=== PATIENT | female | born 1955 | race Caucasian/White ===

== ENCOUNTER 2021-08-13 14:00 | Outpatient (REF) | payer MEDICARE, MEDICAID, SELFPAY ==
[2021-08-13 16:35] LABS: MANUAL DIFF FLAG NO
[2021-08-13 16:40] LABS: Basophils Percent Auto 0.6 % (0-2); Eosinophils Absolute Auto 0.1 X10*3/uL (0.0-0.4); Eosinophils Percent Auto 1.5 % (0-4); Hematocrit 43.9 % (37.0-47.0); Hemoglobin 14.2 g/dl (12.0-16.0); Imm Gran Abs Auto 0.01 X10*3/uL (0.00-0.03); Imm Gran Pct Auto 0.2 % (0.0-0.4); Lymphocytes Absolute Auto 1.3 X10*3/uL (1.2-4.9); Mean Corpuscular HGB Conc 32.3 g/dl (31.0-35.0); Mean Corpuscular Volume 92.8 fL (80.0-98.0); Mean Platelet Volume 11.1 fL (9.4-12.3); Monocytes Absolute Auto 0.5 X10*3/uL (0.1-1.2); Monocytes Percent Auto 10.3 % (2-11); Neutrophils Absolute Auto 3.3 x10*3/uL (2.0-8.3); Neutrophils Percent Auto 63.4 % (45-73); Platelet Count 198 X10*3/uL (160-400); Red Blood Count 4.73 X10*6/uL (4.20-5.50); Red Cell Distribution Width 13.5 % (11.0-16.0); White Blood Count 5.3 X10*3/uL (4.8-10.8)
[2021-08-13 16:53] LABS: Alanine Aminotransferase 21 U/L (0-31); Albumin Level 4.4 g/dL (3.5-5.0); Alkaline Phosphatase 65 U/L (39-117); Anion Gap 16 (12-20); Aspartate Amino Transferase 23 U/L (5-31); Bilirubin Total 0.5 mg/dL (0.0-1.0); Blood Urea Nitrogen 12 mg/dL (9-16); Calcium 9.7 mg/dL (8.4-10.2); Carbon Dioxide 23 mmol/L (22-29); Chloride 104 mmol/L (96-108); Cholesterol 272 mg/dL; Estimated Average Glucose 114 mg/dL; Estimated Glomerular Filt Rate > 60; Glucose Fasting 78 mg/dL (60-99); HDL Cholesterol 55 mg/dL; Hemoglobin A1c % 5.6 %; LDL Cholesterol Calculated 191 mg/dl; Potassium 4.5 mmol/L (3.3-5.1); Sodium 138 mmol/L (135-145); Total Protein 6.7 g/dL (6.5-8.0); Triglycerides 133 mg/dL
[2021-08-13 17:10] LABS: Erythrocyte Sedimentation Rate 9 MM/HR (0-20)
[2021-08-13 17:14] LABS: TSH reflex Free T4 1.42 uIU/mL (0.32-4.0)
[2021-08-13 17:24] LABS: Folate 17.4 ng/mL (> or = 4.0); Vitamin B12 425 pg/mL (200-900)
[2021-08-17 15:17] LABS: Vitamin D 25-OH, D2 <4 ng/mL; Vitamin D 25-OH, D3 26 ng/mL; Vitamin D 25-OH, Total 26 ng/mL (30-100)
== END 2021-08-13 14:01 | disposition home or self-care (01) ==
LOC: HO.HMGCLDS 14:00
PROVIDERS: Visit Provider Nurse Practitioner Acute Care
DX: L20.81 Atopic neurodermatitis (principal); L29.9 Pruritus, unspecified; R53.82 Chronic fatigue, unspecified; E78.5 Hyperlipidemia, unspecified
CPT/HCPCS: 36415; 80053; 80061; 82306; 82607; 82746; 83036; 84443; 85025; 85652

== ENCOUNTER → 2023-01-04 13:22 | Outpatient (REF) | payer MEDICARE, MEDICAID, SELFPAY ==
--- NOTE | 2023-01-04 13:25 | HM_ITS ---
* Total monitoring time 2 days. * Underlying rhythm is sinus. Average ventricular rate 54/Min. Range 40 to 78/Min. * About 78% of the time, rate less than 60/Min. * Rare PACs with minimal burden. Very brief runs noted. * No significant pauses or AV blocks. * Palpitations/skipping associated with supraventricular ectopy. MTDD
== END ==
LOC: HO.CARD 13:22
PROVIDERS: PCP Internal Medicine; Visit Provider Internal Medicine
DX: I47.1 Supraventricular tachycardia (principal)
CPT/HCPCS: 93225

== ENCOUNTER → 2023-01-04 13:25 | Outpatient (BNV) | payer MEDICARE, MEDICAID, SELFPAY | PROVIDERS: PCP Internal Medicine; Visit Provider Internal Medicine | DX: I49.1 Atrial premature depolarization (principal) | CPT/HCPCS: 93227 ==

== ENCOUNTER 2023-03-24 13:16 | Outpatient (AMB) | payer MEDICARE, MEDICAID, SELFPAY ==
--- NOTE | 2023-03-24 13:43 | A.OFFVIS_ITS ---
Intake Vital Signs 03/24/23 13:44 Height 5 ft 4 in Weight 160 lb 0.889 oz BMI 27.5 BP 140/72 H Blood Pressure Location Lt brachial Position Sitting Pulse 61 Intake Visit Reasons: NPV/[place]/Tachycardia Intake Note: NPV w/ EKG Support Clerk Required: No Accompanied by: Self / Same As Patient Allergies barium sulfate Allergy (Intermediate, Verified 03/24/23 13:49) Hives buspirone [From BuSpar] Allergy (Intermediate, Verified 03/24/23 13:49) Shakiness erythromycin base Allergy (Intermediate, Verified 03/24/23 13:49) Swelling house dust mite Allergy (Intermediate, Verified 03/24/23 13:49) Runny Nose imipramine Allergy (Intermediate, Verified 03/24/23 13:49) Anxiety lactose Allergy (Intermediate, Verified 03/24/23 13:49) Diarrhea mepivacaine [From Carbocaine] Allergy (Intermediate, Verified 03/24/23 13:49) Difficulty Breathing oxycodone Allergy (Intermediate, Verified 03/24/23 13:49) Anxiety penicillin V Allergy (Intermediate, Verified 03/24/23 13:49) Swelling Ykcvhrj-PGZ-GtY Reductase Inhibitor Allergy (Intermediate, Verified 03/24/23 13:49) Muscle cramps Sulfa (Sulfonamide Antibiotics) Allergy (Intermediate, Verified 03/24/23 13:49) Swelling tetracycline Allergy (Intermediate, Verified 03/24/23 13:49) Diarrhea varenicline Allergy (Intermediate, Verified 03/24/23 13:49) Nausea Medication List - Last Reconciled 03/24/23 by Sumit Townsend MD blood pressure test kit-medium As directed fluticasone propionate 50 mcg/actuation (Flonase Allergy Relief) 1 spray intranasal DAILY 90 days hydrocortisone 1% (Cortisone (hydrocortisone)) 1 appl topical BID PRN 30 days hydroxyzine HCl 25 mg PO BID PRN ketoconazole 2% 1 appl topical 2XW 30 days loratadine (Allergy Relief (loratadine)) 10 mg PO DAILY multivitamin 1 tab PO DAILY prednisolone acetate 1% drps ophthalmic (eye) propranolol 5 mg (1/2 x 10 mg) PO BID 90 days tacrolimus 0.03% 1 appl topical BID [vitamin S16-sayeh acid ] [Vitamin C ] [Vitamin D3 ] HPI HPI Comments History of Present Illness Details Payal is here for consultation regarding an episode of palpitations. Apparently few weeks ago, she felt as though her heart was racing. It lasted for short time only. Subsequently, there is no clear recurrence. She has numerous symptoms including aches and pains, stress etc., and various other complaints. No previous history of any coronary artery disease, myocardial infarction or cardiomyopathy or in fact any cardiac issues whatsoever. Just has a lot of constitutional type nonspecific symptoms. [facility] Medical History Anxiety Back pain Chronic fatigue syndrome Claustrophobia Dyslipidemia Elevated cholesterol Environmental allergies Fibromyalgia HTN (hypertension) IBS (irritable bowel syndrome) Lactose intolerance MDD (major depressive disorder) Myalgic encephalomyelitis syndrome Panic attacks Personality disorder PTSD (post-traumatic stress disorder) Sjogrens syndrome Smoker Tendonitis of shoulder, right TMJ (dislocation of temporomandibular joint) Wears dentures Surgical History Hx of oral surgery Hx of laparoscopy Hx of tonsillectomy Hx of colonoscopy Family History Mother No problems noted. Father No problems noted. 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) Alcohol intake: never Patient Tobacco Use Status: Current everyday Tobacco user Tobacco use type: Cigarette Cigarettes Per Day: 6 Years Smoked: 35 e-Cigarette/Vaping Use: Currently Using Second Hand Smoke Exposure: No service: No Current occupational status: retired Cognitive needs: Yes Hearing needs: No Vision needs: Yes Review of Systems Const Denies chills, Denies daytime sleepiness, Denies fatigue, Denies fever(s), Denies frequent falls, Denies night sweats, Denies snoring, Denies weakness, Denies weight gain and Denies weight loss Eyes Denies loss of vision ENT Denies dizziness and Denies hearing loss Card Denies chest pain, Denies chest pain with activity, Denies syncope, Denies rapid heart rate, Denies edema, Denies claudication, Denies leg edema, Denies lightheadedness, Denies palpitations, Denies dyspnea, Denies dyspnea on exertion and Denies orthopnea Resp Denies cough, Denies excessive phlegm production, Denies dyspnea, Denies dyspnea on exertion, Denies snoring and Denies wheezing GI Denies abdominal pain, Denies hematochezia, Denies change in bowel habits, Denies change in stool character, Denies heartburn, Denies nausea and Denies vomiting Denies hematuria, Denies urinary frequency and Denies dysuria Musc Denies arthralgias, Denies muscle weakness, Denies numbness and Denies tingling Skin/Breast Denies nail changes and Denies rash Neuro Denies Abnormal speech present, Denies dizziness, Denies syncope, Denies frequent falls, Denies loss of vision, Denies memory loss, Denies numbness, Denies tingling and Denies weakness Psych Denies depression and Denies memory loss Endo Denies fatigue and Denies palpitations Aller/Immun Denies wheezing Physical Exam Vital Signs: Last Vital Signs Pulse 61 03/24/23 13:44 BP 140/72 H 03/24/23 13:44 BMI result Body Mass Index 27.5 Const General: comfortable and no acute distress Orientation/consciousness: patient oriented x3 HEENT Other: Unremarkable Head: Yes normal to inspection Neck Neck: Yes normal visual inspection Chest Chest palpation & inspection: normal inspection of the chest Resp Auscultation: clear to auscultation bilaterally Cardio Palpation: normal PMI Heart sounds: S1 normal heart sound present, S2 normal heart sound present, no gallops, Murmur heart sound present systolic I/ and no rubs GI Palpation (GI): Soft to palpation Back/Spine/Pelvis Other: unremarkable Skin General skin exam: no rashes or lesions noted Neuro General: patient oriented x3 Speech: No Abnormal speech present Extrem General: Yes normal to inspection Psych Mental Status: mental status grossly normal Office Procedures EKG Details: EKG with sinus rhythm at 61/Min; nonspecific ST-T changes but otherwise unremarkable[place] [id number], Complete Assessment & Plan Assessment & Plan (1) Heart palpitations: Code(s): R00.2 - Palpitations Plan Isolated occurrence of brief palpitations, but no clear recurrences. In the Holter monitor, underlying rhythm is sinus with an average rate of 54/Min. Range was 40-78/Min. Most of the heart rates were actually less than 60/Min. Rare PACs and low burden. Overall, nothing of major concern. As the episode was isolated and the Holter is also reassuring, reassurance only at this time. If these episodes are recurrent, then we can do longer term monitoring. Otherwise, echocardiogram for cardiac function assessment. She states that twin brother had some valve procedure but she really cannot give any further information. We can assess for bicuspid valve extra. Otherwise, mainly provided reassurance. Orders: Orders CA echo transthoracic complete Today R00.2 - Palpitations Quality Reporting (2019) Adult ([facility] 13808/12/68) Smoking risk assessment performed?: Yes Patient Tobacco Use Status: Current everyday Tobacco user Coding Level of Care Code New Pt Level 3 (57221) Diagnoses Heart palpitations R00.2 CPT Codes EKG - CPT: 21108-[id number], Complete ([id number])
[2023-03-24 13:44] VITALS: BP 140/72; PULSE 61; BMI 27.5
== END 2023-03-24 14:07 | disposition home or self-care (01) ==
PROVIDERS: PCP Internal Medicine; Visit Provider Internal Medicine
DX: R00.2 Palpitations (principal)
CPT/HCPCS: 93010; 99203

== ENCOUNTER → 2023-03-24 13:16 | Outpatient (BNVA) | payer MEDICARE, MEDICAID, SELFPAY | PROVIDERS: PCP Internal Medicine; Visit Provider Internal Medicine | DX: R00.2 Palpitations (principal) | CPT/HCPCS: 93005; 99202 ==

== ENCOUNTER → 2023-05-07 13:42 | Outpatient (REF) | payer MEDICARE, MEDICAID, SELFPAY ==
--- NOTE | 2023-05-07 13:45 | CA_ITS ---
Transthoracic Echocardiogram Patient (Last, First, Middle): Payal Mina, Gender: Female Date of : 1955 Age: 67 Procedure Date: 05/07/2023 Procedure Type: Transthoracic Echocardiogram Location: OP Height: 162.56 cm Weight: 74.84 kg BSA: 1.80 m2 Heart Rate: bpm BP: 134 / 68 mmHg Senior Commissary Agent: TO Referring MD: Sumit Townsend MD Symptoms: R00.2 - Palpitations Study Quality: Fair ECG Rhythm: Sinus Conclusions: - The left ventricular systolic function is normal. The calculated ejection fraction is 61% by biplane method. - There is mild calcification of the aortic valve. - No obvious valvular pathology seen on this study. Findings Procedure Information The study quality is limited by the patients inability to tolerate the test. Left Ventricle Normal left ventricular cavity size. There is normal left ventricular wall thickness. The left ventricular systolic function is normal. The calculated ejection fraction is 61% by biplane method. There is no evidence of regional wall motion abnormalities. Evidence suggests grade I (mild) diastolic dysfunction. There is mild septal asymmetric hypertrophy. Right Ventricle Normal right ventricular cavity size and systolic function. Atria Both atria are normal in size. Aortic Valve There is a normal trileaflet aortic valve. There is mild calcification of the aortic valve. There is no aortic valve stenosis. There is no aortic valve regurgitation. Mitral Valve The mitral valve appears normal. There is trace mitral valve regurgitation. There is no mitral valve stenosis. Pulmonic Valve The pulmonic valve is likely normal. Tricuspid Valve There is trace tricuspid valve regurgitation. Tricuspid regurgitation envelope is inadequate for calculation of right ventricular systolic pressure. Great Vessels The asc aorta is normal in size. Venous The inferior vena cava is normal in size and collapses greater than 50% with inspiration. Pericardium/Pleural There is no evidence of pericardial effusion. Prior Study Comparison No prior study available for comparison. Recommendations, Care & Conclusions No obvious valvular pathology seen on this study. Measurements 2D Linear Measurements IVSd: 1.04 0.6-0.9/0.6-1.0 cm LVIDd: 4.07 3.9-5.3/4.2-5.9 cm LVIDd Index: 2.26 2.4-3.2/2.2-3.1 cm/m2 LVIDs: 2.04 2.0-3.6 cm LVPWd: 0.88 0.7-1.1 cm LA Diam: 3.00 2.7-3.8/3.0-4.0 cm LAIDs Index: 1.67 1.5-2.3 cm/m2 LV Mass: 153.51 67-162/88-224 g LV Mass Index: 85.29 43-95/49-115 g/m2 LVOT Diam: 2.00 3.0+(-)1.3 cm 2D Systolic Function EF 4C: 60.00 >55% EF 2C: 61.00 >55% EF BiP: 61.00 >55% Mitral Valve MV Pk E: 0.96 MV PK A: 1.09 MV Decel Time: 320.00 E/A: 0.90 E'Lateral: 7.07 E'Medial: 4.79 E/E' Med: 19.90 E/E' Lat: 13.50 PHT: 94.00 MVA PHT: 2.34 Decel Gates: 2.99 Aortic Valve AoV Pk Chip: 1.31 AoV Mn Chip: 0.82 AoV VTI: 0.31 AoV Pk Grad: 7.00 Aov Mn Grad: 3.00 ZOEY Cont.VTI: 2.77 LVOT LVOT Pk Chip: 1.03 LVOT Mn Chip: 0.68 LVOT VTI: 0.27 LVOT Pk Grad: 4.00 LVOT Mn Grad: 2.00 LVOT Diam: 2.00 LVOT Area: 3.14 Diastolic Function MV Pk E: 0.96 MV Pk A: 1.09 E/A: 0.90 E'Medial: 4.79 E/E' Med: 19.90 E' Laterial: 7.07 E/E' Lat: 13.50 Right Ventricle TAPSE (mm): 27.70 TVS' Chip: 12.40 Tricuspid Valve RA Press: 3.00 Great Vessels Aorta Sinus of Valsalva: 3.37 2.0-3.5 cm Ao Asc: 2.90 2.1-3.4 cm Updated in Other Vendor System with Status of Final Sumit Townsend MD electronically signed on 05/08/2023 2:03:09 PM with status of Final
== END ==
LOC: HO.CARD 13:42
PROVIDERS: PCP Internal Medicine; Visit Provider Internal Medicine
DX: R00.2 Palpitations (principal)
CPT/HCPCS: 93306

== ENCOUNTER → 2023-05-07 13:45 | Outpatient (BNV) | payer MEDICARE, MEDICAID, SELFPAY | PROVIDERS: PCP Internal Medicine; Visit Provider Internal Medicine | DX: I35.8 Other nonrheumatic aortic valve disorders (principal) | CPT/HCPCS: 93306 ==

== ENCOUNTER 2023-07-01 12:41 | Outpatient (AMB) | payer MEDICARE, MEDICAID, SELFPAY ==
[2023-07-01 12:50] VITALS: BP 156/74; BMI 26.9
--- NOTE | 2023-07-01 12:50 | MHC.PC.OV ---
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 Accompanied by: Self / Same As Patient Allergies barium sulfate Allergy (Intermediate, Verified 07/01/23 13:09) Hives buspirone [From BuSpar] Allergy (Intermediate, Verified 07/01/23 13:09) Shakiness erythromycin base Allergy (Intermediate, Verified 07/01/23 13:09) Swelling house dust mite Allergy (Intermediate, Verified 07/01/23 13:09) Runny Nose imipramine Allergy (Intermediate, Verified 07/01/23 13:09) Anxiety lactose Allergy (Intermediate, Verified 07/01/23 13:09) Diarrhea mepivacaine [From Carbocaine] Allergy (Intermediate, Verified 07/01/23 13:09) Difficulty Breathing oxycodone Allergy (Intermediate, Verified 07/01/23 13:09) Anxiety penicillin V Allergy (Intermediate, Verified 07/01/23 13:09) Swelling Mmikdfs-NEW-ShR Reductase Inhibitor Allergy (Intermediate, Verified 07/01/23 13:09) Muscle cramps Sulfa (Sulfonamide Antibiotics) Allergy (Intermediate, Verified 07/01/23 13:09) Swelling tetracycline Allergy (Intermediate, Verified 07/01/23 13:09) Diarrhea varenicline Allergy (Intermediate, Verified 07/01/23 13:09) Nausea Medication List - Last Reconciled 07/01/23 by Maria M Tavarez MD blood pressure test kit-medium As directed fluticasone propionate 50 mcg/actuation (Flonase Allergy Relief) 1 spray intranasal DAILY 90 days hydrocortisone 1% (Cortisone (hydrocortisone)) 1 appl topical BID PRN 30 days hydroxyzine HCl 25 mg PO BID PRN ketoconazole 2% 1 appl topical 2XW 30 days loratadine (Allergy Relief (loratadine)) 10 mg PO DAILY multivitamin 1 tab PO DAILY prednisolone acetate 1% drps ophthalmic (eye) propranolol 5 mg (1/2 x 10 mg) PO BID 90 days tacrolimus 0.03% 1 appl topical BID [vitamin P46-wwmdk acid ] [Vitamin C ] [Vitamin D3 ] Tobacco use date assessed: 07/01/23 Dental Screening Dental Screen Date: 07/01/23 Did you have a dental visit in the last 12 months?: No Did you have a dental problem in the last 6 months where you did not have access to dental care?: No Was dental information given to patient?: Patient has dentist HPI HPI Comments History of Present Illness Details This is a 67-year-old female with recurrent major depression that comes for her physical exam. She said that her depression is aggravated by the person that lives above her makes a lot of knowing is. Declines medication or counseling. Declines mammograms. Last colonoscopy was 2014 at [facility] in [place] and he was normal as per patient. No chest pain or shortness of breath. [facility] Medical History (Updated 07/01/23 @ 14:13 by Maria M Tavarez MD) Dyslipidemia Smoker Fibromyalgia MDD (major depressive disorder) Back pain Lactose intolerance Tendonitis of shoulder, right Sjogrens syndrome Elevated cholesterol HTN (hypertension) Personality disorder Myalgic encephalomyelitis syndrome Chronic fatigue syndrome Environmental allergies Wears dentures IBS (irritable bowel syndrome) TMJ (dislocation of temporomandibular joint) PTSD (post-traumatic stress disorder) Anxiety Claustrophobia Panic attacks Surgical History (Updated 07/01/23 @ 13:20 by Maria M Tavarez MD) Cataracts, bilateral Hx of oral surgery Hx of laparoscopy Hx of tonsillectomy Hx of colonoscopy Family History Mother No problems noted. Father No problems noted. 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 1. Little interest or pleasure in doing things: several days 2. Feeling down, depressed, or hopeless: more than half the days 3. Trouble falling or staying asleep, or sleeping too much: nearly every day 4. Feeling tired or having little energy: nearly every day 5. Poor appetite or overeating: several days 6. Feeling bad about yourself - or that you are a failure or have let yourself or your family down: not at all 7. Trouble concentrating on things, such as reading the newspaper or watching television: not at all 8. Moving or speaking so slowly that other people could have noticed. Or the opposite - being so fidgety or restless that you have been moving around a lot more than usual: not at all 9. Thoughts that you would be better off or of hurting yourself in some way: not at all Total score: 10 Depression Screening Interpretation: Positive Depression Screening Follow-up: Existing condition Depression Screening Done: Yes 52514 - PHQ-9 Billing: Yes Source: Developed by Drs. Randell Vences, Kaylie Garcia, Thaddeus Roberson and colleagues, with an educational marta from [employer]. Thrive Questionnaire Date Thrive assessed: 07/01/23 I am a: Patient What is your living situation today?: I have a steady place to live Within the past 12 months, did the food you bought not last and you didn't have the money to get more?: Never true Within the past 12 months, did you worry whether your food would run out before you got money to buy more?: Never true Do you have trouble paying for medicines?: No Do you have trouble getting transportation to medical appointments?: No Do you have trouble paying your heating and electricity bill?: No Do you have trouble taking care of your child, family member or friend?: No Do you have trouble with day-to-day activities such as bathing, preparing meals, shopping, managing finances, etc.?: No Are you currently unemployed and looking for a job?: No Are you interested in more education?: No Please select the resources that you would like help with: None Currently or been in a relationship where the following occur: no concerns reported AUDIT C Alcohol Use Questionnaire (AUDIT-C) 1. How often do you have a drink containing alcohol?: Never Total Score: 0 MIKEL-7 AMB Questionnaire MIKEL-7 Date MIKEL - 7 assessed: 07/01/23 Feeling nervous, anxious, or on edge: 3 = Nearly every day Not being able to stop or control worryin = Not at all Worrying too much about different things: 2 = More than half the days Trouble relaxin = Not at all Being so restless that it is hard to sit still: 0 = Not at all Becoming easily annoyed or irritable: 0 = Not at all Feeling afraid as if something awful might happen: 0 = Not at all Total MIKEL-7 score (0-4 normal; 5-9 mild; 10-14 moderate; 15-21 severe): 5 Source: Developed by Drs. Randell Vences, Kaylie Garcia, Thaddeus Roberson and colleagues, with an educational marta from [employer]. MIKEL-7 Assessment Billing MIKEL-7 Assessment Tool: MIKEL-7 Assessment 19754 Review of Systems Const All systems reviewed & are unremarkable except as noted in HPI and below Eyes Reports no additional complaints, Denies change in vision and Denies other visual disturbances Card Denies chest pain at rest, Denies chest pain with activity, Denies edema, Denies irregular heart rhythm, Denies claudication, Denies dyspnea, Denies dyspnea on exertion, Denies orthopnea, Denies paroxysmal nocturnal dyspnea and Denies slow heart rate Resp Denies cough, Denies dyspnea and Denies dyspnea on exertion GI Denies abdominal pain, Denies change in bowel habits, Denies excessive flatus, Denies nausea and Denies vomiting Denies urinary incontinence, Denies urinary hesitancy and Denies urinary urgency Musc Denies abnormal gait, Denies atrophy, Denies deformity and Denies limited range of motion Skin/Breast Denies bleeding lesions, Denies changing lesions and Denies rash Neuro Denies abnormal gait, Denies behavioral changes, Denies confusion and Denies lack of coordination Psych Denies behavioral changes and Denies confusion Physical exam (Primary Care) Vital Signs: Last Vital Signs BP 156/74 H 07/01/23 12:50 BMI result Body Mass Index 26.9 Tobacco/Smoking Status: Tobacco use Status Tobacco use date assessed 07/01/23 07/01/23 13:02 Patient Tobacco Use Status Current everyday Tobacco 07/01/23 13:02 Tobacco use type Cigarette 07/01/23 13:02 e-Cigarette/Vaping Use Currently Using 07/01/23 13:02 PHQ-9: PHQ-9 Score PHQ-9: Total score 10 07/01/23 13:41 Depression Screening Interpretation: Positive Depression Screening Follow-up: Existing condition Thrive Assessment: Date of Thrive Assessment Date Thrive assessed 07/01/23 07/01/23 13:02 Currently or been in a relationship where the following occur: no concerns reported Const General: No confusion Orientation/consciousness: patient oriented x3 and No confusion HENMT Head: Yes normal to inspection, Yes normocephalic and Yes atraumatic Ears: external ears normal Eyes General: appearance normal, both eyes and all related structures Eyelids: Yes eyelids normal Conjunctivae: conjunctivae normal Neck Neck: Yes normal visual inspection and Yes supple Resp Effort & Inspection: normal respiratory effort Auscultation: clear to auscultation bilaterally Cardio Jugular venous distension: no JVD Rate: regular rate Rhythm: regular rhythm Heart sounds: S1 normal heart sound present and S2 normal heart sound present GI Inspection: Yes normal to inspection Palpation (GI): Soft to palpation and nontender Auscultation: normal bowel sounds Skin General skin exam: no rashes or lesions noted Neuro General: patient oriented x3, no focal motor deficits and No confusion Extrem General: Yes full ROM Psych Appearance: grossly normal Office Procedures Flu Questionnaire Does the patient have a severe egg allergy?: No Immunizations flu vacc [id number] 6mos up(PF) 60 mcg(15 mcgx4)/0.5 mL IM syringe Performing Provider: Maria M Tavarez MD [facility] Documented (not given) by: AI Pelletier on 07/01/23 13:40 Reason Not Given: Patient Refused Assessment and Plan Assessment & Plan (1) Physical exam: Code(s): Z00.00 - Encounter for general adult medical examination without abnormal findings Plan: Repeat in a year. (2) Major depression, recurrent: Code(s): F33.9 - Major depressive disorder, recurrent, unspecified Qualifiers: Active/Remission status: currently active Major depression episode severity: mild Qualified Code(s): F33.0 - Major depressive disorder, recurrent, mild Plan: Was advised to let me know if she wants counseling or medication. Orders: Orders Vitamin D 25-OH Total Today E55.9 - Vitamin D deficiency, unspecified Influenza [id number] Immunization Today Z23 - Encounter for immunization Lipid Panel Today E78.5 - Hyperlipidemia, unspecified Comprehensive [place]. Panel Fast Today I10 - Essential (primary) hypertension Complete Blood Count Auto Diff Today R53.82 - Chronic fatigue, unspecified Vitamin B12 and Folate Today E53.8 - Deficiency of other specified B group vitamins, R53.82 - Chronic fatigue, unspecified Thyroid Stimulating Hormone Today R53.82 - Chronic fatigue, unspecified Medications: New guaifenesin 200 mg PO DAILY PRN 90 tabs 1RF cough 90 days Changed From loratadine (Allergy Relief (loratadine)) 10 mg PO DAILY To loratadine (Allergy Relief (loratadine)) 10 mg PO DAILY 90 tabs 0RF 90 days Refilled fluticasone propionate 50 mcg/actuation (Flonase Allergy Relief) administer into each nostril 1 spray intranasal DAILY 16 grams 2RF 90 days propranolol 5 mg (1/2 x 10 mg) PO BID 90 tabs 1RF 90 days L29.9 - Pruritus, unspecified hydroxyzine HCl 25 mg PO BID PRN 180 tabs 0RF itching L29.9 - Pruritus, unspecified Coding Level of Care Code Est Pt Prev Care 40-64y(51076) Diagnoses Physical exam Z00.00 Mild episode of recurrent major depressive disorder F33.0 Active/Remission status: currently active Major depression episode severity: mild Additional Codes MIKEL-7 Assessment Billing - MIKEL-7 Assessment Tool: MIKEL-7 Assessment 24826 ([id number]) Time Spent (min) 34
[2023-07-01 14:10] VITALS: BP 150/70
== END 2023-07-01 13:43 | disposition home or self-care (01) ==
PROVIDERS: PCP Internal Medicine; Visit Provider Internal Medicine
DX: Z00.00 Encounter for general adult medical examination without abnormal findings (principal); F33.0 Major depressive disorder, recurrent, mild
CPT/HCPCS: 99397

== ENCOUNTER 2023-10-18 13:56 | Outpatient (AMB) | payer MEDICARE, MEDICAID, SELFPAY ==
[2023-10-18 14:55] VITALS: BP 138/80; PULSE 76; TEMP 36.4; O2SAT 97; BMI 25.7
--- NOTE | 2023-10-18 14:55 | MHC.OFFWIV ---
Intake Vital Signs 10/18/23 14:55 Height 5 ft 4 in Weight 150 lb BMI 25.7 BP 138/80 Blood Pressure Location Lt brachial Position Sitting Pulse 76 Pulse Source Pulse Oximeter Temp 97.6 F Temp Source Temporal Artery Scan Pulse Oximetry (%) 97 Oxygen Delivery Method Room Air Intake Visit Reasons: EP RT eye swelling/Sinus ingfection Intake Note: Pt presents to the office today for c/o rt eye swelling, ? sinus infection that has been going on for about a week now. She states she also has a corneal abrasion that is being followed by her eye doctor. Patient Tobacco Use Status: Current everyday Tobacco user Allergies barium sulfate Allergy (Intermediate, Verified 10/18/23 15:59) Hives buspirone [From BuSpar] Allergy (Intermediate, Verified 10/18/23 15:59) Shakiness erythromycin base Allergy (Intermediate, Verified 10/18/23 15:59) Swelling house dust mite Allergy (Intermediate, Verified 10/18/23 15:59) Runny Nose imipramine Allergy (Intermediate, Verified 10/18/23 15:59) Anxiety lactose Allergy (Intermediate, Verified 10/18/23 15:59) Diarrhea mepivacaine [From Carbocaine] Allergy (Intermediate, Verified 10/18/23 15:59) Difficulty Breathing oxycodone Allergy (Intermediate, Verified 10/18/23 15:59) Anxiety penicillin V Allergy (Intermediate, Verified 10/18/23 15:59) Swelling Ngjmpic-NZI-LnF Reductase Inhibitor Allergy (Intermediate, Verified 10/18/23 15:59) Muscle cramps Sulfa (Sulfonamide Antibiotics) Allergy (Intermediate, Verified 10/18/23 15:59) Swelling tetracycline Allergy (Intermediate, Verified 10/18/23 15:59) Diarrhea varenicline Allergy (Intermediate, Verified 10/18/23 15:59) Nausea Medication List - Last Reconciled 10/18/23 by Rudy Rangel MD blood pressure test kit-medium As directed guaifenesin 200 mg PO DAILY PRN 90 days hydrocortisone 1% (Cortisone (hydrocortisone)) 1 appl topical BID PRN 30 days hydroxyzine HCl 25 mg PO BID PRN ketoconazole 2% 1 appl topical 2XW 30 days loratadine (Allergy Relief (loratadine)) 10 mg PO DAILY 90 days multivitamin 1 tab PO DAILY fwbojrkc-mgjcuyhcka-hdrx-HC 3.5-400-10,000 mg-unit/g-1% 1 appl ophthalmic (eye) QID ofloxacin 0.3% 1 drp ophthalmic (eye) QID prednisolone acetate 1% drps ophthalmic (eye) propranolol 5 mg (1/2 x 10 mg) PO BID 90 days tacrolimus 0.03% 1 appl topical BID [vitamin N38-nfqoy acid ] [Vitamin C ] [Vitamin D3 ] HPI EP RT eye swelling/Sinus ingfection HPI Details 67 yr old female presents to the office for a sick visit. Pt has a corneal abrasion in the right eye and is on medications since Wednesday last. She now has a running nose, sinus pain and headaches. Her Eye MD suggested she see her PCP. No fever or chills. [facility] Medical History Dyslipidemia Smoker Fibromyalgia MDD (major depressive disorder) Back pain Lactose intolerance Tendonitis of shoulder, right Sjogrens syndrome Elevated cholesterol HTN (hypertension) Personality disorder Myalgic encephalomyelitis syndrome Chronic fatigue syndrome Environmental allergies Wears dentures IBS (irritable bowel syndrome) TMJ (dislocation of temporomandibular joint) PTSD (post-traumatic stress disorder) Anxiety Claustrophobia Panic attacks Surgical History Cataracts, bilateral Hx of oral surgery Hx of laparoscopy Hx of tonsillectomy Hx of colonoscopy Family History Mother No problems noted. Father No problems noted. 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) Alcohol intake: never Patient Tobacco Use Status: Current everyday Tobacco user Tobacco use type: Cigarette Cigarettes Per Day: 6 Years Smoked: 35 e-Cigarette/Vaping Use: Currently Using Second Hand Smoke Exposure: No service: No Current occupational status: retired Cognitive needs: Yes Hearing needs: No Vision needs: Yes Physical Exam Vital Signs: Last Vital Signs Temp 97.6 F 10/18/23 14:55 Pulse 76 10/18/23 14:55 BP 138/80 10/18/23 14:55 Pulse Ox 97 10/18/23 14:55 Oxygen Delivery Method Room Air 10/18/23 14:55 BMI result Body Mass Index 25.7 Const General: cooperative and healthy appearing Nutritional Appearance: well nourished Orientation/consciousness: patient oriented x3 Limitations: no limitations HEENT Head: Yes normal to inspection Eyes Other: Right eye: swollen eyelid with congested conjunctiva. Neck Neck: Yes normal visual inspection Chest Chest palpation & inspection: normal palpation of entire chest wall Resp Effort & Inspection: normal respiratory effort Neuro General: patient oriented x3 Assessment & Plan Assessment & Plan (1) Sinusitis: Code(s): J32.9 - Chronic sinusitis, unspecified Plan: Flonase and Z tami called in. If sx do not improve to follow up here. Coding Level of Care Code Est Pt Level 3 (35794) Diagnoses Sinusitis J32.9
== END 2023-10-18 15:55 | disposition home or self-care (01) ==
PROVIDERS: PCP Internal Medicine; Visit Provider Internal Medicine
DX: J32.9 Chronic sinusitis, unspecified (principal)
CPT/HCPCS: 99213

== ENCOUNTER 2023-10-26 17:05 | Outpatient (AMB) | payer MEDICARE, MEDICAID, SELFPAY ==
--- NOTE | 2023-10-26 17:05 | A.OFFPC_ITS ---
Intake Visit Reasons: Cold Symptoms, sinus pressure, eye socket pain Edging Supervisor Required: No Accompanied by: Self / Same As Patient Allergies barium sulfate Allergy (Intermediate, Verified 10/26/23 17:11) Hives buspirone [From BuSpar] Allergy (Intermediate, Verified 10/26/23 17:11) Shakiness erythromycin base Allergy (Intermediate, Verified 10/26/23 17:11) Swelling house dust mite Allergy (Intermediate, Verified 10/26/23 17:11) Runny Nose imipramine Allergy (Intermediate, Verified 10/26/23 17:11) Anxiety lactose Allergy (Intermediate, Verified 10/26/23 17:11) Diarrhea mepivacaine [From Carbocaine] Allergy (Intermediate, Verified 10/26/23 17:11) Difficulty Breathing oxycodone Allergy (Intermediate, Verified 10/26/23 17:11) Anxiety penicillin V Allergy (Intermediate, Verified 10/26/23 17:11) Swelling Yyvvfsx-WUP-NhL Reductase Inhibitor Allergy (Intermediate, Verified 10/26/23 17:11) Muscle cramps Sulfa (Sulfonamide Antibiotics) Allergy (Intermediate, Verified 10/26/23 17:11) Swelling tetracycline Allergy (Intermediate, Verified 10/26/23 17:11) Diarrhea varenicline Allergy (Intermediate, Verified 10/26/23 17:11) Nausea Medication List - Last Reconciled 10/26/23 by Maria M Tavarez MD azithromycin (Zithromax) take 500 mg today (day 1), then 250 mg for 4 days (days 2-5) PO blood pressure test kit-medium As directed fluticasone propionate 50 mcg/actuation (Flonase Allergy Relief) 1 spray intranasal DAILY guaifenesin 200 mg PO DAILY PRN 90 days hydrocortisone 1% (Cortisone (hydrocortisone)) 1 appl topical BID PRN 30 days hydroxyzine HCl 25 mg PO BID PRN ketoconazole 2% 1 appl topical 2XW 30 days loratadine (Allergy Relief (loratadine)) 10 mg PO DAILY 90 days multivitamin 1 tab PO DAILY hcnwbbia-offnetdgte-scuf-HC 3.5-400-10,000 mg-unit/g-1% 1 appl ophthalmic (eye) QID ofloxacin 0.3% 1 drp ophthalmic (eye) QID prednisolone acetate 1% drps ophthalmic (eye) propranolol 5 mg (1/2 x 10 mg) PO BID 90 days tacrolimus 0.03% 1 appl topical BID [vitamin G76-rumxa acid ] [Vitamin C ] [Vitamin D3 ] Tobacco use date assessed: 07/01/23 Dental Screening Dental Screen Date: 07/01/23 HPI HPI Comments History of Present Illness Details This is a 67-year-old female with right eye corneal abrasion that happened 10 days ago that has tele health visit by phone complaining of still having some nasal congestion after being treated at the walk-in clinic for sinusitis with a Z-Gary. Feels improved but still somewhat congested. I recommend Neti pot. She is having antibiotic eyedrops for her corneal abrasion and is not able to open the right eye and is very sensitive to light. [facility] Medical History Dyslipidemia Smoker Fibromyalgia MDD (major depressive disorder) Back pain Lactose intolerance Tendonitis of shoulder, right Sjogrens syndrome Elevated cholesterol HTN (hypertension) Personality disorder Myalgic encephalomyelitis syndrome Chronic fatigue syndrome Environmental allergies Wears dentures IBS (irritable bowel syndrome) TMJ (dislocation of temporomandibular joint) PTSD (post-traumatic stress disorder) Anxiety Claustrophobia Panic attacks Surgical History Cataracts, bilateral Hx of oral surgery Hx of laparoscopy Hx of tonsillectomy Hx of colonoscopy Family History Mother No problems noted. Father No problems noted. 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 Randell Vences, Kaylie Garcia, Thaddeus Roberson and colleagues, with an educational marta from [employer]. Review of Systems Const All systems reviewed & are unremarkable except as noted in HPI and below Eyes Reports no additional complaints, Denies change in vision, Reports other visual disturbances and Reports photophobia ENT Reports nasal congestion Card Denies chest pain at rest, Denies chest pain with activity, Denies edema, Denies irregular heart rhythm, Denies claudication, Denies orthopnea, Denies paroxysmal nocturnal dyspnea and Denies slow heart rate Physical exam (Primary Care) Tobacco/Smoking Status: Tobacco use Status Tobacco use date assessed 07/01/23 10/26/23 17:07 Patient Tobacco Use Status Current everyday Tobacco 10/26/23 17:07 Tobacco use type Cigarette 10/26/23 17:07 e-Cigarette/Vaping Use Currently Using 10/26/23 17:07 Thrive Assessment: Date of Thrive Assessment Date Thrive assessed 07/01/23 10/26/23 17:07 Eyes Direct Ophthalmoscopy: photophobia Telehealth Telehealth Telehealth Platform: Telephone Location of provider rendering services: practice address Location of patient: address on file Patient Identification confirmed using: Name, : Yes Telehealth method: voice only Patient verbally consented to treatment: Yes Patient verbally consented to billing insurance company: Yes Patient informed of any privacy concerns related to visit: Yes Minutes spent on Phone/Video with Pt.: 20 Assessment and Plan Assessment & Plan (1) Corneal abrasion: Code(s): S05.00XA - Injury of conjunctiva and corneal abrasion without foreign body, unspecified eye, initial encounter Plan: Follow-up with ophthalmology. Continue antibiotic eyedrops. (2) Nasal congestion: Code(s): R09.81 - Nasal congestion Plan: Start Neti pot as needed. Coding Level of Care Code Tele Est Pt Level 3 (43645) Diagnoses Corneal abrasion S05.00XA Nasal congestion R09.81 Time Spent (min) 20
== END 2023-10-26 17:36 | disposition home or self-care (01) ==
LOC: HO.HMGH 17:05
PROVIDERS: PCP Internal Medicine; Visit Provider Internal Medicine
DX: S05.00XA Injury of conjunctiva and corneal abrasion without foreign body, unspecified eye, initial encounter (principal); R09.81 Nasal congestion
CPT/HCPCS: G2252

== ENCOUNTER 2024-07-05 14:22 | Outpatient (AMB) | payer MEDICARE, MEDICAID, SELFPAY ==
--- NOTE | 2024-07-05 14:29 | A.OFFPC_ITS ---
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 Accompanied by: Self / Same As Patient Allergies barium sulfate Allergy (Intermediate, Verified 07/05/24 14:48) Hives buspirone [From BuSpar] Allergy (Intermediate, Verified 07/05/24 14:48) Shakiness erythromycin base Allergy (Intermediate, Verified 07/05/24 14:48) Swelling house dust mite Allergy (Intermediate, Verified 07/05/24 14:48) Runny Nose imipramine Allergy (Intermediate, Verified 07/05/24 14:48) Anxiety lactose Allergy (Intermediate, Verified 07/05/24 14:48) Diarrhea mepivacaine [From Carbocaine] Allergy (Intermediate, Verified 07/05/24 14:48) Difficulty Breathing oxycodone Allergy (Intermediate, Verified 07/05/24 14:48) Anxiety penicillin V Allergy (Intermediate, Verified 07/05/24 14:48) Swelling Pxlqwub-LLE-KoN Reductase Inhibitor Allergy (Intermediate, Verified 07/05/24 14:48) Muscle cramps Sulfa (Sulfonamide Antibiotics) Allergy (Intermediate, Verified 07/05/24 14:48) Swelling tetracycline Allergy (Intermediate, Verified 07/05/24 14:48) Diarrhea varenicline Allergy (Intermediate, Verified 07/05/24 14:48) Nausea Medication List - Last Reconciled 07/05/24 by Maria M Tavarez MD blood pressure test kit-medium As directed fluticasone propionate 50 mcg/actuation (Flonase Allergy Relief) 1 spray intranasal DAILY hydrocortisone 1% (Cortisone (hydrocortisone)) 1 appl topical BID PRN 30 days hydroxyzine HCl 25 mg PO BID PRN ketoconazole 2% 1 appl topical 2XW 30 days loratadine (Allergy Relief (loratadine)) 10 mg PO DAILY 90 days multivitamin 1 tab PO DAILY voqzbeam-wozrgiphgu-fcdo-HC 3.5-400-10,000 mg-unit/g-1% 1 appl ophthalmic (eye) QID ofloxacin 0.3% 1 drp ophthalmic (eye) QID prednisolone acetate 1% drps ophthalmic (eye) propranolol 5 mg (1/2 x 10 mg) PO BID 90 days tacrolimus 0.03% 1 appl topical BID [vitamin F11-bgvoj acid ] [Vitamin C ] [Vitamin D3 ] Tobacco use date assessed: 07/05/24 Fall risk assessment: No Falls in past year Last assessed Fall Risk: 07/05/24 Dental Screening Dental Screen Date: 07/05/24 Did you have a dental visit in the last 12 months?: Yes Did you have a dental problem in the last 6 months where you did not have access to dental care?: No Was dental information given to patient?: Patient has dentist HPI HPI Comments History of Present Illness Details This is a 68-year-old female that comes for her physical exam. She declines mammogram and DEXA scan. Had colonoscopy 2014 and was normal. Has dyslipidemia and declines statins. She also declines any type of vaccine. Complains of dry eyes and dry mouth. Has scalp pruritus and saw Dermatology for it. Complains of right foot pain due to bunion and has onychogryphosis and would like to see Podiatry. Also has tooth pain and will see dentist next week. She complains of insomnia due to upstairs neighbor making a lot of noise and I offer medication for insomnia and she declines it. She also has moderate recurrent major depression and declines counseling and medication. [facility] Medical History Dyslipidemia Smoker Fibromyalgia MDD (major depressive disorder) Back pain Lactose intolerance Tendonitis of shoulder, right Sjogrens syndrome Elevated cholesterol HTN (hypertension) Personality disorder Myalgic encephalomyelitis syndrome Chronic fatigue syndrome Environmental allergies Wears dentures IBS (irritable bowel syndrome) TMJ (dislocation of temporomandibular joint) PTSD (post-traumatic stress disorder) Anxiety Claustrophobia Panic attacks Surgical History Cataracts, bilateral Hx of oral surgery Hx of laparoscopy Hx of tonsillectomy Hx of colonoscopy Family History Mother No problems noted. Father No problems noted. 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 1. Little interest or pleasure in doing things: more than half the days 2. Feeling down, depressed, or hopeless: more than half the days 3. Trouble falling or staying asleep, or sleeping too much: not at all 4. Feeling tired or having little energy: more than half the days 5. Poor appetite or overeating: more than half the days 6. Feeling bad about yourself - or that you are a failure or have let yourself or your family down: more than half the days 7. Trouble concentrating on things, such as reading the newspaper or watching te levision: more than half the days 8. Moving or speaking so slowly that other people could have noticed. Or the opposite - being so fidgety or restless that you have been moving around a lot more than usual: more than half the days 9. Thoughts that you would be better off or of hurting yourself in some way: not at all Total score: 14 Depression Screening Interpretation: Positive Depression Screening Follow-up: Existing condition and Follow-up Visit Requested Depression Screening Done: Yes 69732 - PHQ-9 Billing: Yes Source: Developed by Drs. Randell Vences, Kaylie Garcia, Thaddeus Roberson and colleagues, with an educational marta from [employer]. Thrive Questionnaire Date Thrive assessed: 07/05/24 I am a: Patient What is your living situation today?: I have a steady place to live Within the past 12 months, did the food you bought not last and you didn't have the money to get more?: Never true Within the past 12 months, did you worry whether your food would run out before you got money to buy more?: Never true Do you have trouble paying for medicines?: No Do you have trouble getting transportation to medical appointments?: No Do you have trouble paying your heating and electricity bill?: No Do you have trouble taking care of your child, family member or friend?: No Do you have trouble with day-to-day activities such as bathing, preparing meals, shopping, managing finances, etc.?: No Are you currently unemployed and looking for a job?: Yes Are you interested in more education?: No Please select the resources that you would like help with: None Currently or been in a relationship where the following occur: I choose not to answer THRIVE Score: 0 AUDIT C Alcohol Use Questionnaire (AUDIT-C) 1. How often do you have a drink containing alcohol?: Never Total Score: 0 Score Reviewed/Action Taken: No MIKEL-7 AMB Questionnaire MIKEL-7 Date MIKEL - 7 assessed: 07/05/24 Feeling nervous, anxious, or on edge: 0 = Not at all Not being able to stop or control worryin = More than half the days Worrying too much about different things: 0 = Not at all Trouble relaxin = More than half the days Being so restless that it is hard to sit still: 2 = More than half the days Becoming easily annoyed or irritable: 2 = More than half the days Feeling afraid as if something awful might happen: 1 = Several days Total MIKEL-7 score (0-4 normal; 5-9 mild; 10-14 moderate; 15-21 severe): 9 Source: Developed by Drs. Randell Vences, Kaylie Garcia, Thaddeus Roberson and colleagues, with an educational marta from [employer]. MIKEL-7 Assessment Billing MIKEL-7 Assessment Tool: MIKEL-7 Assessment 20421 Review of Systems Const All systems reviewed & are unremarkable except as noted in HPI and below Eyes Reports dry eyes Card Denies chest pain at rest, Denies chest pain with activity, Denies edema, Denies irregular heart rhythm, Denies claudication, Denies dyspnea, Denies dyspnea on exertion, Denies orthopnea, Denies paroxysmal nocturnal dyspnea and Denies slow heart rate Resp Denies cough, Denies dyspnea and Denies dyspnea on exertion GI Denies abdominal pain, Denies change in bowel habits, Denies excessive flatus, Denies nausea and Denies vomiting Physical exam (Primary Care) Vital Signs: Last Vital Signs BP 122/78 07/05/24 14:31 BMI result Body Mass Index 27.8 Tobacco/Smoking Status: Tobacco use Status Tobacco use date assessed 07/05/24 07/05/24 14:37 Patient Tobacco Use Status Current everyday Tobacco 07/05/24 14:31 Tobacco use type Cigarette 07/05/24 14:31 e-Cigarette/Vaping Use Currently Using 07/05/24 14:31 PHQ-9: PHQ-9 Score PHQ-9: Total score 14 07/05/24 14:51 Depression Screening Interpretation: Positive Depression Screening Follow-up: Existing condition and Follow-up Visit Requested Thrive Assessment: Date of Thrive Assessment Date Thrive assessed 07/05/24 07/05/24 14:37 Currently or been in a relationship where the following occur: I choose not to answer HENMT Head: Yes normal to inspection, Yes normocephalic and Yes atraumatic Ears: external ears normal Eyes General: appearance normal, both eyes and all related structures Eyelids: Yes eyelids normal Conjunctivae: conjunctivae normal Neck Neck: Yes normal visual inspection and Yes supple Resp Effort & Inspection: normal respiratory effort Auscultation: clear to auscultation bilaterally Cardio Jugular venous distension: no JVD Rate: regular rate Rhythm: regular rhythm Heart sounds: S1 normal heart sound present and S2 normal heart sound present GI Inspection: Yes normal to inspection Palpation (GI): Soft to palpation and nontender Auscultation: normal bowel sounds Skin General skin exam: no rashes or lesions noted Neuro General: no focal motor deficits Extrem General: Yes full ROM Psych Appearance: grossly normal Office Procedures Flu Questionnaire Does the patient have a severe egg allergy?: No Immunizations Fluarix Triv [id number] (PF) 45 mcg (15 mcg x 3)/0.5 mL IM syringe Performing Provider: Maria M Tavarez MD [place] Documented (not given) by: AI Pelletier on 07/05/24 14:43 Reason Not Given: Patient Refused Coding Level of Care Code Est Pt Level 4 (25005) New Pt Prev Care >65yr (53376) Diagnoses Physical exam Z00.00 Onychogryposis L60.2 Insomnia G47.00 Mild episode of recurrent major depressive disorder F33.0 Active/Remission status: currently active Major depression episode severity: mild Pruritus of scalp L29.9 Dry eyes H04.123 Additional Codes MIKEL-7 Assessment Billing - MIKEL-7 Assessment Tool: MIKEL-7 Assessment 04058 ([id number]) PHQ-9 - 84395 - PHQ-9 Billing: Yes ([id number]) Time Spent (min) 40 Assessment & Plan Assessment & Plan (1) Physical exam: Code(s): Z00.00 - Encounter for general adult medical examination without abnormal findings Category: Medical Plan: Repeat in a year. (2) Onychogryposis: Code(s): L60.2 - Onychogryphosis Category: Medical Plan: Referred to Podiatry. (3) Insomnia: Code(s): G47.00 - Insomnia, unspecified Category: Medical Plan: Declines medication. Sleep hygiene education given. (4) Major depression, recurrent: Code(s): F33.9 - Major depressive disorder, recurrent, unspecified Category: Medical Qualifiers: Active/Remission status: currently active Major depression episode severity: mild Qualified Code(s): F33.0 - Major depressive disorder, recurrent, mild Plan: Declines medication. (5) Pruritus of scalp: Code(s): L29.9 - Pruritus, unspecified Category: Medical Plan: Follow-up with dermatology. Start selenium sulfide shampoo. (6) Dry eyes: Code(s): H04.123 - Dry eye syndrome of bilateral lacrimal glands Category: Medical Plan: Continue artificial tears as needed. Consider to start flaxseed oil 3 times a day. Blink more often. Labs will be order to rule out Sjogren syndrome. Orders: Orders Influenza [id number] Immunization Today Z23 - Encounter for immunization
[2024-07-05 14:31] VITALS: BP 122/78; BMI 27.8
== END 2024-07-05 15:17 | disposition home or self-care (01) ==
PROVIDERS: PCP Internal Medicine; Visit Provider Internal Medicine
DX: Z00.00 Encounter for general adult medical examination without abnormal findings (principal); F33.0 Major depressive disorder, recurrent, mild; H04.123 Dry eye syndrome of bilateral lacrimal glands; L29.9 Pruritus, unspecified; L60.2 Onychogryphosis; G47.00 Insomnia, unspecified

== ENCOUNTER → 2024-07-05 14:22 | Outpatient (BNVA) | payer MEDICARE, MEDICAID, SELFPAY | PROVIDERS: PCP Internal Medicine; Visit Provider Internal Medicine | DX: Z00.00 Encounter for general adult medical examination without abnormal findings (principal); E78.5 Hyperlipidemia, unspecified; L60.2 Onychogryphosis; G47.00 Insomnia, unspecified; F33.0 Major depressive disorder, recurrent, mild; L29.9 Pruritus, unspecified; H04.123 Dry eye syndrome of bilateral lacrimal glands; Z28.21 Immunization not carried out because of patient refusal | CPT/HCPCS: 96127; 99212; 99397 ==